=== PATIENT | male | born 2000 | race Caucasian/White ===

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

== ENCOUNTER 2022-11-15 21:13 | Emergency (ER) | payer BC ==
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
[2022-11-15 22:15] VITALS: BP 115/66; PULSE 68; O2SAT 99
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
== END 2022-11-15 23:04 | disposition home or self-care (01) ==
LOC: ED 21:13
DX: S63.610A Unspecified sprain of right index finger, initial encounter (principal); V29.99XA Rider (driver) (passenger) of other motorcycle injured in unspecified traffic accident, initial encounter; R51.9 Headache, unspecified; M79.644 Pain in right finger(s)
CPT/HCPCS: 70450; 73130; 99283